=== PATIENT | male | born 1940 | race Caucasian/White ===

== ENCOUNTER → 2017-05-31 | Day surgery (SDC) | payer OTHER ==
[~2017-05-31] MED LIST: BACITRACIN IRRIGATION/NS 50,000 UNITS/1,000 ML BTL IRR ONE; BUPIVACAINE 0.5% 30 ML SDV ONE; DIAZEPAM 5 MG TAB ONE; DIAZEPAM 5 MG TAB PO ONE; LIDO/EPI 1% **for epidural** 30 ML SDV ONE; LIDOCAINE 1% 300 MG/30 ML SDV ONE; MIDAZOLAM 2 MG/2 ML VIAL ONE; NS 1,000 ML IV ONE; ceFAZolin 2 GM/SWFI 2 GM/20 ML SYR IVP ONE; diphenhydrAMINE 25 MG CAP PO ONE; fentaNYL 100 MCG/2 ML INJ ONE
--- NOTE | 2017-05-31 08:26 | CPEKG ---
Heart Rate: 81 RR Interval: 741 P-R Interval: 184 QRSD Interval: 128 QT Interval: 396 QTC Interval: 460 P [place]: 0 QRS [place]: -61 EKG Severity - ABNORMAL ECG - EKG Impression: VENTRICULAR-PACED COMPLEXES EKG Impression: NONSPECIFIC IVCD WITH LAD Electronically Signed By: yMnor Dunn 31-May-2017 15:58:57
[2017-05-31 08:47] LABS: PLATELET COUNT 199 10^3/uL (150-400)
[2017-05-31 08:53] LABS: INR 1.84 (0.83-1.16); PROTIME(PATIENT) 21.3 SEC (12.0-15.0)
--- NOTE | 2017-05-31 09:07 | PDPROPOC ---
Sedation Plan of Care Sedation Plan of Care: vital signs stable, mental status noted, patient educated of risks, benefits, alternatives, patient can tolerate sedation ASA Classification: ASA 1 Planned drugs: fentanyl, midazolam Mallampati Score: Class 2 Mallampati Reference Image: Patient passed 3-3-2 rule?: Yes
--- NOTE | 2017-05-31 09:08 | PDHPUP ---
History & Physical Update H&P update statement: This history and physical update is based on an assessment of the patient which was completed after admission or registration (within 24 hours), but prior to the surgery/procedure. H&P update: H&P reviewed & patient examined, no change in patient's condition since H&P completed
--- NOTE | 2017-05-31 11:16 | CPEKG ---
Heart Rate: 74 RR Interval: 811 P-R Interval: 112 QRSD Interval: 132 QT Interval: 428 QTC Interval: 475 P [place]: 0 QRS [place]: -55 T Wave [place]: 165 EKG Severity - ABNORMAL ECG - EKG Impression: VENTRICULAR-PACED COMPLEXES EKG Impression: PVCs EKG Impression: UNDETERMINED ATRIAL RYTHM Electronically Signed By: Mynor Dunn 31-May-2017 15:58:55
--- NOTE | 2017-05-31 11:23 | CPIP ---
[f rep st] INVASIVE CARDIAC PROCEDURE DATE OF PROCEDURE: 05/31/2017 INDICATIONS: Mr. Russell is 77 years old. He has a history of a nonischemic dilated cardiomyopathy casandra ing back to 2004, chronic atrial fibrillation, and hypertension. In 2004, he had a single-chamber IC D implanted. At that time, Sprint [place] lead was used. He had a lead revision and generator mota e October 05, 2011. He has never had delivered therapies. He is not dependent on his ICD. He is curre nt device is at elective replacement indicators. PROCEDURE: Implantable cardioverter defibrillator generator change. TECHNIQUE: Following informed consent, in the fasting state and after the administration of prophyla ctic antibiotics, the patient was brought to the cardiac catheterization laboratory. The left chest was prepped and draped in the usual sterile fashion. 2% lidocaine was infiltrated in the skin overly ing the existing device. Using a #10 blade, a 4 cm incision was made. Using blunt dissection, the incision was carried down t o the capsule of the existing ICD. This was opened sharply and the device delivered from the field. The device was disconnected from the leads. The leads were independently interrogated with acceptab le capture and sensing. The pocket was then irrigated with antibiotic-containing solution. The new device was brought to the field and affixed to the header according to care coordinator guidelines. The device and the redundant portions of the lead were then placed in the pocket. The pocket was then cl osed initially with 2 layers of 2-0 and 3-0 Vicryl, followed by katie for the skin. COMPLICATIONS: None. DEVICE INFORMATION: The newly implanted device is a Medtronic Visia AF MRI compatible device, model #GTFD8N8, serial #[id number]. The existing lead is a Medtronic [id number] cm lead implanted October 04 12. The sensed R-waves were 4 mV. Capture was 1.5 V at 0.4 msec. Defibrillation thresholds were no t checked. Lead impedance was 380 ohms. DISPOSITION: The patient will be recovered in the CVC. He will be discharged home later today. /[id number]/MODL
== END | disposition home or self-care (01) ==
LOC: FCATH 07:46
PROVIDERS: ATTEND Internal Medicine Cardiovascular Disease
PROC: 0JH608Z Insertion of Defibrillator Generator into Chest Subcutaneous Tissue and Fascia, Open Approach (ICD-10-PCS; principal; 2017-05-31)
PROC: 0JPT0PZ Removal of Cardiac Rhythm Related Device from Trunk Subcutaneous Tissue and Fascia, Open Approach (ICD-10-PCS; principal; 2017-05-31)
DX: Z45.02 Encounter for adjustment and management of automatic implantable cardiac defibrillator (principal); I42.9 Cardiomyopathy, unspecified; I48.2 Chronic atrial fibrillation; I08.3 Combined rheumatic disorders of mitral, aortic and tricuspid valves; I10 Essential (primary) hypertension; G47.33 Obstructive sleep apnea (adult) (pediatric); Z79.01 Long term (current) use of anticoagulants
CPT/HCPCS: C1722; J0690; J2250; J3010

== ENCOUNTER 2017-07-27 07:47 | Day surgery (SDC) | payer OTHER ==
--- NOTE | 2017-07-27 09:21 | PDGENHP ---
History and Physical - Chief Complaint screening for colon cancer, GERD, nausea - History of Present Illness 77 yo male with MMP, referred by PMD for colonoscopy and EGD for screening and GERD respectively. Ongoing, intermittent GERD and Nausea. Hx of gastric bypass. no personal or family hx of colon polyps/cancer History Information - Allergies/Home Medication List Allergies/Adverse Reactions: Sulfa (Sulfonamide Antibiotics) Allergy (Verified 07/24/17 15:57) Itching Home Medications: Ambien 5MG (*) 05/31/17 [Last Taken 05/30/17 21:00] Coreg 05/31/17 [Last Taken 05/31/17 07:00] Digoxin 05/31/17 [Last Taken 05/31/17 07:00] Furosemide 05/31/17 [Last Taken 05/30/17 08:00] Furosemide 05/31/17 [Last Taken 05/30/17 18:00] Hydrochlorothiazide 05/31/17 [Last Taken 05/30/17 08:00] Iron 05/31/17 [Last Taken 05/30/17 08:00] Losartan Potassium 05/31/17 [Last Taken 05/31/17 07:00] Metformin HCl ER 05/31/17 [Last Taken 05/29/17 08:00] Potassium Chloride 05/31/17 [Last Taken 05/30/17 08:00] Venlafaxine 75MG (*) 05/31/17 [Last Taken 05/30/17 08:00] Vitamin B12 1000MCG/ML (*) 05/31/17 [Last Taken 05/30/17 08:00] Vitamin C 05/31/17 [Last Taken 05/30/17 08:00] Vitamin D3 2000 units tab (OTC) 05/31/17 [Last Taken 05/30/17 08:00] Warfarin Sodium 05/31/17 [Last Taken 05/29/17 18:00] Aspirin 07/24/17 [Last Taken Unknown] I have personally reviewed and updated: family history, medical history, social history, surgical history - Past Medical History coronary artery disease, degenerative disc disease, GERD - Surgical History Additional surgical history: gastric bypass - Family History Negative for: cancer - Social History Smoking Status: Never smoked Alcohol Use: Rarely Drug Use: None Review of Systems Review of Systems: ROS: 10pt was reviewed & negative except for what was stated in HPI & below Physical Exam Physical Exam: Constitutional: no apparent distress Eyes: PERRL Ears, Nose, Mouth, Throat: moist mucous membranes Cardiovascular: regular rate and rhythym Respiratory: no respiratory distress Gastrointestinal: soft, non-tender abdomen Skin: warm Neurologic: AAOx3 Psychiatric: interacting appropriately Assessment & Plan Assessment: 1. screening for colon cancer 2. GERD 3. Nausea Plan: 1. Colonoscopy 2. EGD
[2017-07-27] MEDS ORDERED: LR 1,000 ML IV ONE (09:22)
[2017-07-27] MEDS ORDERED: NS 500 ML IV PRN (09:24)
[2017-07-27] MEDS ORDERED: ONDANSETRON 4 MG/2 ML VIAL IVP PRN (09:24)
[2017-07-27] MEDS ORDERED: ALBUTEROL 3 ML DEYVIAL IH PRN (09:24)
[2017-07-27] MEDS ORDERED: NALOXONE HCL 0.4 MG/ML INJ IVP PRN (09:24)
--- NOTE | 2017-07-27 09:24 | PDANEPAE ---
ANE Past Medical History - Cardiovascular History Hx Hypertension: Yes Hx Arrhythmias: Yes Hx Chest Pain: No Hx Coronary Artery / Peripheral Vascular Disease: No Hx CHF / Valvular Disease: Yes Hx Palpitations: No Cardiovascular History Comment: chronic Afib,valve disease - Pulmonary History Hx COPD: No Hx Asthma/Reactive Airway Disease: No Hx Recent Upper Respiratory Infection: No Hx Oxygen in Use at Home: No Hx Sleep Apnea: Yes Sleep Apnea Screening Result - Last Documented: Positive Pulmonary History Comment: Severe HERMINIA uses CPAP. 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 - Neurologic History Hx Cerebrovascular Accident: No Hx Seizures: No Hx Dementia: No - Endocrine History Hx Diabetes: Yes Endocrine History Comment: type 2 new diagnosis - Renal History Hx Renal Disorders: No - Liver History Hx Hepatic Disorders: No - Neurological & Psychiatric Hx Hx Neurological and Psychiatric Disorders: Yes Neurological / Psychiatric History Comment: C5/6 fusion residual issues with right index finger - Cancer History Hx Cancer: No - Congenital Disorder History Hx Congenital Disorders: Yes Congenital History Comment: PPD POSITIVE - GI History Hx Gastrointestinal Disorders: Yes Gastrointestinal History Comment: GERD,REFLUX,MILD NAUSEA IN AM AFTER CEREAL/ MILK - Other Health History Other Health History: GASTRIC BYPASS. PARTIAL LOWER. Iron deficency anemia. bruises easily - Chronic Pain History Chronic Pain: Yes (neck C4/5 herniated) - Surgical History Prior Surgeries: right shoulder replacement. bilat knee replacement. Barriatric surgery ANE Review of Systems Review of Systems: - Exercise capacity METS (RN): 3 METS - Pacemaker Pacemaker Type: Permanent Pacer/Defib Pacemaker Residential Sales Consultant: Medtronic Pacemaker Model: MEDTRONIC VISIA AF MRI compatible Pacemaker Mode: ICD Date Pacemaker Last Checked: 05/15/17 ANE Patient History - Allergies Allergies/Adverse Reactions: Sulfa (Sulfonamide Antibiotics) Allergy (Verified 07/24/17 15:57) Itching - Home Medications Home Medications: Ambien 5MG (*) 05/31/17 [Last Taken 05/30/17 21:00] Coreg 05/31/17 [Last Taken 05/31/17 07:00] Digoxin 05/31/17 [Last Taken 05/31/17 07:00] Furosemide 05/31/17 [Last Taken 05/30/17 08:00] Furosemide 05/31/17 [Last Taken 05/30/17 18:00] Hydrochlorothiazide 05/31/17 [Last Taken 05/30/17 08:00] Iron 05/31/17 [Last Taken 05/30/17 08:00] Losartan Potassium 05/31/17 [Last Taken 05/31/17 07:00] Metformin HCl ER 05/31/17 [Last Taken 05/29/17 08:00] Potassium Chloride 05/31/17 [Last Taken 05/30/17 08:00] Venlafaxine 75MG (*) 05/31/17 [Last Taken 05/30/17 08:00] Vitamin B12 1000MCG/ML (*) 05/31/17 [Last Taken 05/30/17 08:00] Vitamin C 05/31/17 [Last Taken 05/30/17 08:00] Vitamin D3 2000 units tab (OTC) 05/31/17 [Last Taken 05/30/17 08:00] Warfarin Sodium 05/31/17 [Last Taken 05/29/17 18:00] Aspirin 07/24/17 [Last Taken Unknown] - Smoking Hx Smoking Status: Never smoked - Alcohol Use Alcohol Use: Rarely - Family Anes Hx Family Hx Anesthesia Complications: none ANE Labs/Vital Signs - Vital Signs Height: 180.34 cm Weight: 131.542 kg ANE Physical Exam - Airway Neck exam: decreased ROM, increased neck circumference, short neck Mallampati Score: Class 3 Mouth exam: normal dental/mouth exam - Pulmonary Pulmonary: no respiratory distress, no rales or rhonchi, reduced air movement - Cardiovascular Cardiovascular: irregularly irregular - ASA Status ASA Status: IV ANE Anesthesia Plan Anesthesia Plan: MAC
[2017-07-27] MEDS ORDERED: LIDOCAINE 2% JELLY 5 ML TUBE ONE (09:25)
[2017-07-27] MEDS ORDERED: PROPOFOL/EMULSION 500 MG/50 ML BOTTLE IV ONE (09:25)
[2017-07-27] MEDS ORDERED: LIDOCAINE 2% 5 ML SDV ONE (09:25)
[2017-07-27 09:42] LABS: INR 1.41 (0.83-1.16); PROTIME(PATIENT) 17.4 SEC (12.0-15.0)
--- NOTE | 2017-07-27 10:21 | GIREPORT ---
[facility] Surgical Services - Endoscopy Department Patient Name: Patricio Russell Procedure Date: 07/27/2017 9:17 AM Patient Type: Outpatient Attending MD/ ER Physician: Fernando Escamilla MD Procedure: Upper GI endoscopy Indications: Heartburn, Nausea Providers: Fernando Escamilla MD Medicines: Sedation Administered by an Anesthesia Professional Complications: No immediate complications. Description of Procedure: After obtaining informed consent, the endoscope was passed under direct vision. Throughout the procedure, the patient's blood pressure, pulse, and oxygen saturations were monitored continuously. The Endoscope was intro duced through the mouth, and advanced to the second part of duodenum. The [facility] er GI endoscopy was accomplished without difficulty. The patient tolerated th e procedure well. Findings: The examined esophagus was normal. Evidence of a Jayme-en-Y gastrojejunostomy was found. The gastrojejunal anastomosis was characterized by healthy appearing mucosa. This was traversed. Diffuse mild inflammation characterized by congestion (edema) was found in the cardia. Biopsies were taken with a cold forceps for histology. The examined jejunum was normal. Estimated Blood Loss: Estimated blood loss: none. Post Op Diagnosis: - Normal esophagus. - Jayme-en-Y gastrojejunostomy with gastrojejunal anastomosis characteri zed by healthy appearing mucosa. - Gastritis. Biopsied. - Normal examined jejunum. Recommendation: - Written discharge instructions were provided to the patient. - The signs and symptoms of potential delayed complications were discus sed with the patient. - Patient has a contact number available for emergencies. - Return to normal activities tomorrow. - Resume previous diet. - Continue present medications. - Await pathology results. - Resume Coumadin (warfarin) at prior dose today. Refer to Coumadin Cli abner for further adjustment of therapy. Attending Participation: I personally performed the entire procedure. Fernando Escamilla MD Fernando Escamilla MD 07/27/2017 10:20:40 AM This report has been signed electronicallyFernando Escamilla MD Number of Addenda: 0 Note Initiated On: 07/27/2017 9:17 AM [email or web address]
--- NOTE | 2017-07-27 10:22 | GIREPORT ---
[facility] Surgical Services - Endoscopy Department Patient Name: Patricio Russell Procedure Date: 07/27/2017 9:16 AM Patient Type: Outpatient Attending MD/ ER Physician: Fernando Escamilla MD Procedure: Colonoscopy Indications: Screening for colorectal malignant neoplasm Providers: Fernando Escamilla MD Medicines: Sedation Administered by an Anesthesia Professional Complications: No immediate complications. Description of Procedure: After obtaining informed consent, the scope was passed under direct vis ion. Throughout the procedure, the patient's blood pressure, pulse, and oxyg en saturations were monitored continuously. The Colonoscope with irrigatio n channel was introduced through the anus and advanced to the cecum, identified by appendiceal orifice and ileocecal valve. The colonoscopy was performed without difficulty. The patient tolerated the procedure well. The quality of the bowel preparation was good. Findings: Multiple small-mouthed diverticula were found in the sigmoid colon. The exam was otherwise without abnormality. Estimated Blood Loss: Estimated blood loss: none. Post Op Diagnosis: - Diverticulosis in the sigmoid colon. - The examination was otherwise normal. - No specimens collected. Recommendation: - Written discharge instructions were provided to the patient. - The signs and symptoms of potential delayed complications were discus sed with the patient. - Patient has a contact number available for emergencies. - Return to normal activities tomorrow. - Resume previous diet. - Resume Coumadin (warfarin) at prior dose today. Refer to Coumadin Cli abner for further adjustment of therapy. - Repeat colonoscopy is not recommended for screening purposes. Attending Participation: I personally performed the entire procedure. Fernando Escamilla MD Fernando Escamilla MD 07/27/2017 10:22:33 AM This report has been signed electronicallyDaus Francine MD Number of Addenda: 0 Note Initiated On: 07/27/2017 9:16 AM [email or web address]
--- NOTE | 2017-07-27 10:28 | POSTANESTH ---
Post Anesthetic Evaluation Cardiovascular Status: Normal, Stable, Similar to Pre-Op Cond Respiratory Status: Normal, Stable, Similar to Pre-op Cond. Level of Consciousness/Mental Status: Can Participate in Eval Pain Control: Adequate, Prn Tx Ordered Nausea/Vomiting Control: Adequate, Prn Tx Ordered Complications Possibly Related to Anesthesia: None Noted
[2017-07-27 11:00] VITALS: BP 111/61
== END 2017-07-27 11:30 | disposition home or self-care (01) ==
LOC: FSGY 07:47
PROVIDERS: ATTEND Internal Medicine Gastroenterology
PROC: 0DJD8ZZ Inspection of Lower Intestinal Tract, Via Natural or Artificial Opening Endoscopic (ICD-10-PCS; principal; 2017-07-27 09:30)
PROC: 0DB68ZX Excision of Stomach, Via Natural or Artificial Opening Endoscopic, Diagnostic (ICD-10-PCS; principal; 2017-07-27 09:30)
DX: Z12.11 Encounter for screening for malignant neoplasm of colon (principal); K29.70 Gastritis, unspecified, without bleeding; K57.30 Diverticulosis of large intestine without perforation or abscess without bleeding; K21.9 Gastro-esophageal reflux disease without esophagitis; R11.0 Nausea; I25.10 Atherosclerotic heart disease of native coronary artery without angina pectoris; I10 Essential (primary) hypertension; D50.9 Iron deficiency anemia, unspecified; I48.2 Chronic atrial fibrillation; I08.9 Rheumatic multiple valve disease, unspecified; G47.33 Obstructive sleep apnea (adult) (pediatric); E11.9 Type 2 diabetes mellitus without complications; Z79.01 Long term (current) use of anticoagulants; Z96.653 Presence of artificial knee joint, bilateral; Z96.611 Presence of right artificial shoulder joint; Z95.0 Presence of cardiac pacemaker; Z93.4 Other artificial openings of gastrointestinal tract status; Z98.0 Intestinal bypass and anastomosis status; Z98.1 Arthrodesis status; Z98.84 Bariatric surgery status; Z88.2 Allergy status to sulfonamides
CPT/HCPCS: J2704